=== PATIENT | male | born 1955 | race Caucasian/White ===

== ENCOUNTER → 2018-08-27 | Outpatient (CLI) | payer OTHER, SELFPAY ==
[2018-08-26 08:51] VITALS: BMI 45.0
[2018-08-27 09:02] LABS: AST(SGOT) 18 U/L (15-37); Alanine Aminotransfer ALT/SGPT 31 U/L (16-61); Albumin, Serum 3.5 g/dL (3.2-5.0); Alkaline Phosphatase 107 U/L (45-117); Anion Gap 8 (5-15); BUN 11 mg/dL (7-18); BUN/Creat Ratio 12.6 RATIO (10-20); Calcium,Total 8.4 mg/dL (8.5-10.1); Chloride 109 mmol/L (98-107); Cholesterol 149 mg/dL (200); Creatinine, Serum 0.87 mg/dL (0.70-1.30); EST Glomerular Filtration Rate 94 mL/min (>60); Est Glom Filt Rate - Afr Amer 114 mL/min (>60); Globulin 3.3 g/dL (2.2-4.2); Glucose 118 mg/dL (74-106); High Density Lipoprotein 30 mg/dL; Potassium 3.9 mmol/L (3.5-5.1); Protein, Total 6.8 g/dL (6.4-8.2); Sodium Level 144 mmol/L (136-145); Triglycerides 198 mg/dL; Very Low Density Lipoprotein 40 mg/dL (5-40)
== END | disposition home or self-care (01) ==
PROVIDERS: Family Provider Internal Medicine; PCP Internal Medicine; Referring Provider Internal Medicine Cardiovascular Disease; Visit Provider Internal Medicine Cardiovascular Disease
DX: E78.00 Pure hypercholesterolemia, unspecified (principal); Z95.1 Presence of aortocoronary bypass graft
CPT/HCPCS: 36415; 80048; 80061; 80076

== ENCOUNTER → 2019-12-09 07:06 | Outpatient (CLI) | payer OTHER, SELFPAY ==
[2018-08-26 08:51] VITALS: BMI 45.0
[2019-12-09 08:42] LABS: AST(SGOT) 17 U/L (15-37); Alanine Aminotransfer ALT/SGPT 26 U/L (16-61); Albumin, Serum 3.7 g/dL (3.2-5.0); Alkaline Phosphatase 105 U/L (45-117); Bilirubin, Direct 0.16 mg/dL (0.00-0.30); Cholesterol 108 mg/dL (200); Globulin 3.4 g/dL (2.2-4.2); High Density Lipoprotein 27 mg/dL; Protein, Total 7.1 g/dL (6.4-8.2); Triglycerides 147 mg/dL; Very Low Density Lipoprotein 29 mg/dL (5-40)
== END ==
PROVIDERS: PCP Internal Medicine; Referring Provider Internal Medicine Cardiovascular Disease; Visit Provider Internal Medicine Cardiovascular Disease
DX: E78.5 Hyperlipidemia, unspecified (principal)
CPT/HCPCS: 36415; 80061; 80076

== ENCOUNTER → 2020-01-13 06:27 | Outpatient (CLI) | payer OTHER, SELFPAY ==
[2019-12-15 09:42] VITALS: BMI 45.4
--- NOTE | 2020-01-13 17:48 | STRESSREP ---
Stress Test Report Exercise myocardial perfusion stress test. 64-year-old male with a history of coronary artery bypass surgery. Stress protocol: Resting EKG demonstrates normal sinus rhythm with a rate of 57 bpm normal intervals are noted. T wave inversions noted in leads III and aVF. The resting blood pressure was 1 and 30 over 80 mmHg. The patient exercised according to the regular Oracio protocol for a total duration of 5 minutes. The maximum heart rate attained was 134 bpm which was 86% of maximum predicted heart rate the maximum workload was 6.9 metabolic equivalents. The patient maintained sinus rhythm throughout the recording with occasional premature ventricular complexes. The resting blood pressure is 138/80 with a peak blood pressure 190/58 mmHg. T wave inversions were present throughout the stress testing with no ST changes noted to suggest ischemia. The test was terminated due to dyspnea. Myocardial perfusion protocol. 14.7 mCi of technetium 99m sestamibi was injected at rest. The patient exercised according to regular Oracio protocol for 5 minutes at peak exercise 44.9 mCi of technetium 99m sestamibi was injected stress images were obtained stress and rest images were reconstructed and compared in the short axis vertical long horizontal long axis. Gated images were also obtained P Perfusion SPECT analysis: Review of the stress images demonstrate normal perfusion noted in the septum anterior wall and inferior wall. There is a medium size defect noted in the basal anterior wall and lateral base. This extends to the mid lateral wall and the lateral apical wall. This is present on the stress images. On the resting images a similar pattern is noted with minimal improvement towards the lateral apical wall. The above is suggestive of her previous lateral infarct extending from base to mid segment. Minimal apical lateral ischemia is present. Gated SPECT analysis: The gated ejection fraction is 52%. Conclusion: Mildly abnormal exercise myocardial perfusion stress test with mild distal lateral ischemia. 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 Preserved ejection fraction.
== END ==
PROVIDERS: PCP Internal Medicine; Referring Provider Internal Medicine Cardiovascular Disease; Visit Provider Internal Medicine Cardiovascular Disease
DX: I25.10 Atherosclerotic heart disease of native coronary artery without angina pectoris (principal); Z95.1 Presence of aortocoronary bypass graft
CPT/HCPCS: 78452; 93017; A9500; A4216

== ENCOUNTER → 2021-01-03 07:26 | Outpatient (CLI) | payer OTHER, SELFPAY ==
[2021-01-06 12:36] LABS: SAR-COV-2 IGA ANTIBODY Negative (Negative); SAR-COV-2 IGM ANTIBODY Negative (Negative)
== END ==
PROVIDERS: PCP Internal Medicine; Referring Provider Nurse Practitioner Family; Visit Provider Nurse Practitioner Family
DX: Z11.52 Encounter for screening for COVID-19 (principal)
CPT/HCPCS: 36415; 86769

== ENCOUNTER → 2021-12-13 | Outpatient (CLI) | payer OTHER, SELFPAY ==
[2021-12-13 09:20] LABS: AST(SGOT) 15 U/L (15-37); Alanine Aminotransfer ALT/SGPT 33 U/L (16-61); Albumin, Serum 3.4 g/dL (3.2-5.0); Alkaline Phosphatase 85 U/L (45-117); Bilirubin, Direct 0.16 mg/dL (0.00-0.30); Cholesterol 159 mg/dL (200); Globulin 3.4 g/dL (2.2-4.2); High Density Lipoprotein 27 mg/dL; Protein, Total 6.8 g/dL (6.4-8.2); Triglycerides 222 mg/dL; Very Low Density Lipoprotein 44 mg/dL (5-40)
== END | disposition home or self-care (01) ==
PROVIDERS: PCP Internal Medicine; Referring Provider Nurse Practitioner Family; Visit Provider Nurse Practitioner Family
DX: E78.00 Pure hypercholesterolemia, unspecified (principal)
CPT/HCPCS: 36415; 80061; 80076

== ENCOUNTER → 2022-01-04 | Outpatient (CLI) | payer OTHER, SELFPAY ==
--- NOTE | 2022-01-04 06:28 | ECHOCS_ITS ---
Reason For Study: S/P CABG Procedure This was a 2D Doppler, Color Flow transthoracic echocardiogram. The study was technically difficult. Due to body habitus. Contrast injection was performed. Exam performed in department. Left Ventricle Normal LV size. Left ventricular systolic function is normal. The estimated ejection fraction is 55 %. No regional wall motion abnormalities noted. Right Ventricle Normal RV size. Normal systolic function. Atria Normal left atrium. Mitral Valve Normal mitral valve. Tricuspid Valve The tricuspid valve is not well visualized. Aortic Valve Trisinus/trileaflet aortic valve. Pulmonic Valve Normal pulmonic valve. Mild (1+) pulmonic valve insufficiency. Great Vessels Normal aortic root. The pulmonary artery is normal size. Normal inferior vena cava. Pericardium/Pleural No pericardial effusion. Medication Diluted definity 4.0ml given slow IV push to enhance endocardial definition. MMode/2D Measurements & Calculations LVIDd: 6.4 cm IVSd: 1.6 cm LVOT diam: 2.4 cm LVIDs: 4.7 cm LVPWd: 1.5 cm RVDd: 3.5 cm FS: 26.4 % LVOT area: 4.4 cm2 Ao root diam: 4.2 cm LAV(MOD-bp): 118.3 ml LA A4 area: 31.2 cm2 LAV(MOD-bp) Indexed: 44.5 ml/m2 LAV(MOD-sp2): 120.4 ml LAV(MOD-sp4): 103.5 ml LA dimension(2D): 6.2 cm Time Measurements MV dec time: 0.27 sec Doppler Measurements & Calculations MV E max catarino: 103.6 cm/sec Lat Peak E' Catarino: 8.9 cm/sec Med Peak E' Catarino: 8.1 cm/sec MV A max catarino: 92.3 cm/sec E/E' lat: 11.6 E/E' med: 12.7 MV E/A: 1.1 MV dec slope: 385.1 cm/sec2 Ao V2 max: 131.1 cm/sec LV V1 max: 93.1 cm/sec Ao max P.9 mmHg LV V1 max P.5 mmHg JUAN(V,D): 3.1 cm2 PA V2 max: 109.4 cm/sec PI end-d catarino: 111.9 cm/sec ECHO/Echo Complete W/ Contrast Interpretation Summary Normal LV size. Left ventricular systolic function is normal. The estimated ejection fraction is 55 %. Contrast injection was performed. Ordering Physician: Adebayo Moss Referring Physician: Theron Luther Performed By: Sheela Ceballos RDCS, RVT
--- NOTE | 2022-01-04 12:35 | STRESSREP ---
Stress Test Report Exercise perfusion stress test. 66-year-old man with a history of coronary artery disease status post coronary bypass surgery with a GRANADOS to the LAD right internal mammary artery to the circumflex artery and saphenous vein graft to posterior descending artery. Stress protocol: Resting KG demonstrates sinus bradycardia with a rate of 54 bpm normal intervals are noted resting blood pressure is 130/80 mmHg. The patient exercised according to the regular Oracio protocol for total duration of 4 minutes and 40 seconds. Patient completed 1 minute and 40 seconds into stage III of the Oracio protocol. The maximum heart rate attained was 130 bpm which was 84% of max impacted heart rate the maximum workload was 7 metabolic equivalents. At rest there were no ST or T wave changes noted suggest ischemia at peak exercise there was mild downsloping ST depression noted in leads II, III and aVF as well as V5 and V6. The above though suggestive is not diagnostic of ischemia. The test was terminated due to dyspnea. The peak blood pressure was 184/82 mmHg. Myocardial perfusion protocol. 14.9 mCi of technetium 99m sestamibi was injected at rest. Patient exercised according to regular Oracio protocol for 4 minutes and 40 seconds and at peak exercise 44.6 mCi of technetium 99m sestamibi was injected stress images were obtained stress and rest images were reconstructed in comparing the short axis vertical long and horizontal long axis. Gated images were also obtained. Perfusion SPECT analysis: Review of the stress images demonstrate a normal cardiac silhouette size. There is a defect noted in the basal inferior wall on the stress images and also extending to the inferior lateral wall. The anterior wall and septum appear to be well perfused. The resting images demonstrate a similar patent. The above is suggestive of a previous basal inferior and inferolateral infarct with no significant ischemia noted. Gated SPECT analysis: The gated ejection fraction is 54%. Conclusion: Exercise myocardial perfusion stress test with evidence of previous basal inferior and inferior lateral wall infarct at a moderate workload. No obvious ischemia noted. Preserved ejection fraction.
== END | disposition home or self-care (01) ==
PROVIDERS: PCP Internal Medicine; Referring Provider Internal Medicine Cardiovascular Disease; Visit Provider Internal Medicine Cardiovascular Disease
DX: I25.10 Atherosclerotic heart disease of native coronary artery without angina pectoris (principal); Z95.1 Presence of aortocoronary bypass graft
CPT/HCPCS: 78452; 93017; 93306; A9500; Q9957; A4216; C8929

== ENCOUNTER → 2024-06-03 | Outpatient (CLI) | payer OTHER, SELFPAY ==
[2024-06-03 08:50] LABS: Absolute Lymphocyte Count 1.75 X10^3/uL (0.83-4.51); Basophil# 0.06 X10^3/uL; Basophil% 0.9 % (0-1); Eosinophil# 0.25 X10^3/uL; Eosinophils% 3.6 % (0-5); Hematocrit 41.3 % (40-54); Hemoglobin 14.5 g/dL (13.0-16.5); Lymphocyte # 1.75 X10^3/ul (0.83-4.51); Lymphocyte % 25.3 % (19-41); Mean Corp Hgb Conc 35.1 g/dL (32-36); Mean Corpuscular Hgb 30.1 pg (27.0-32.0); Mean Corpuscular Volume 85.7 fL (80-94); Mean Platelet Vol. 11.2 fl (6.2-12.0); Monocyte# 0.84 X10^3/uL; Monocyte% 12.2 % (0-10); NRBC Flagged by Analyzer 0 % (0-5); Neutrophil # 3.96 X10^3/uL (2.7-7.7); Neutrophil % 57.3 % (47-70); Platelet Count 214 K/mm3 (150-450); RBC Distribution Width CV 14.2 % (11.6-14.6); RBC Distribution Width SD 43.7 fl (35.1-43.9); Red Blood Count 4.82 M/mm3 (4.6-6.2); White Blood Count 6.9 K/mm3 (4.4-11.0)
[2024-06-03 09:15] LABS: Microalbumin,Random Urine < 12.0 mg/L (NO RANGE EST.); Microalbumin:Creatinine Ratio UNABLE TO CALCULATE mg/g CRE
[2024-06-03 09:21] LABS: Hemoglobin A1c 5.9 % (<=5.6)
[2024-06-03 09:31] LABS: Vitamin D,25 Hydroxy 27.6 ng/mL (30-100)
[2024-06-03 09:59] LABS: Cholesterol 141 mg/dL (<=200); High Density Lipoprotein 31 mg/dL; Low Density Lipoprotein Calc. 80 mg/dL; Triglycerides 149 mg/dL; Very Low Density Lipoprotein 30 mg/dL (5-40); cholesterol:hdl ratio screen 4.58
[2024-06-03 10:17] LABS: ALB/GLOB Ratio 1.4 RATIO (0.9-2.4); AST(SGOT) 32 U/L (<=37); Alanine Aminotransfer ALT/SGPT 21 U/L (<=46); Albumin, Serum 3.8 g/dL (3.4-4.8); Alkaline Phosphatase 112 U/L (40-129); Anion Gap 9 (5-15); BUN 15 mg/dL (4-19); BUN/Creat Ratio 17.4 RATIO (10-20); Calcium,Total 9.4 mg/dL (7.6-11.0); Carbon Dioxide 25.2 mmol/L (21.0-32.0); Chloride 103 mmol/L (98-108); Creatinine, Serum 0.86 mg/dL (0.70-1.20); EST Glomerular Filtration Rate 94 (>60); Globulin 2.7 g/dL (2.2-4.2); Glucose 120 mg/dL (70-99); Potassium 4.5 mmol/L (3.3-5.1); Protein, Total 6.6 g/dL (5.9-8.4); Sodium Level 137 mmol/L (133-145); Total Bilirubin 0.44 mg/dL (0.00-1.30)
== END | disposition home or self-care (01) ==
PROVIDERS: PCP Internal Medicine; Referring Provider Internal Medicine; Visit Provider Internal Medicine
DX: E55.9 Vitamin D deficiency, unspecified (principal); E11.9 Type 2 diabetes mellitus without complications; E78.00 Pure hypercholesterolemia, unspecified
CPT/HCPCS: 36415; 80053; 80061; 82043; 82306; 82570; 83036; 84443; 85025

== ENCOUNTER 2024-06-19 10:34 | Day surgery (SDC) | payer OTHER, SELFPAY ==
--- NOTE | 2024-06-17 11:53 | PAT.ANESEVAL ---
Pre-Assessment Diagnosis/Proposed Procedure Planned Operative Procedure(s): COLONOSCOPY-OA Anesthesia History Anesthesia History - workers compensation claims examiner: Anesthesia History - workers compensation claims examiner Hx Hospitalization No 06/17/24 08:57 Any Problems With Anesthesia Yes: HARD TIME WAKING 06/17/24 08:57 Cholinesterase deficiency No 06/17/24 08:57 You/Your Family Experience No 06/17/24 08:57 fever (hyperthermia) with Relationship Recent Exposure to Contagious Disease Does patient have nerve No 06/17/24 08:57 stimulator Patient instructed to have device shut off --Does patient have Pacemaker or ICD? When Was Last Pacemaker Check QUESTION #4 FULL TEXT: You/Your Family Experience fever (hyperthermia) with Anesthesia Last Oral Intake Last Oral intake: Last Oral Intake NPO since Meds taken in AM with sips of water? Meds patient instructed to take am of surgery PONV PONV - workers compensation claims examiner: PONV - workers compensation claims examiner Female No 06/17/24 08:57 HX of Motion Sickness No 06/17/24 08:57 HX of N/V After Surgery No 06/17/24 08:57 Non-Smoker Yes 06/17/24 08:57 Duration of Surgery greater No 06/17/24 08:57 than 60 minutes Number of Risk Factors 1 06/17/24 08:57 PONV Score Low Risk 06/17/24 08:57 Height & Weight Height & Weight: Anesthesia: Height & Weight Height 6 ft 03/02/24 11:36 Respiratory Assessment Respiratory Assessment - workers compensation claims examiner: Respiratory Tract Infection Hx - workers compensation claims examiner Hx Respiratory Tract Infection No 06/17/24 08:57 STOP Sleep Apnea STOP Sleep Apnea - workers compensation claims examiner: STOP Sleep Apnea - workers compensation claims examiner Hx Hypertension Yes: CONTROLLED ON MEDS 06/17/24 08:57 Hx Sleep Apnea Yes 06/17/24 08:57 CPAP No 06/17/24 08:57 BIPAP Yes 06/17/24 08:57 Do you snore loudly (louder than talking or can be heard Do you often feel tired/ fatigued/ sleepy during daytime? Has anyone observed you stop breathing during sleep? STOP Results Positive 06/17/24 08:57 QUESTION #5 FULL TEXT : Do you snore loudly (louder than talking or can be heard through closed doors)? 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 Specify any problems Hx of Preganancy in last 3 N/A 06/17/24 08:57 Months Nurse Filling Out Transfusion VCHRISTIN 06/17/24 08:57 & Questions: Date: 06/17/24 06/17/24 08:57 Time: 09:00 06/17/24 08:57 Patient unable to answer at this time (ie. confused, unrespo /Reproduction History /Reproductive History - workers compensation claims examiner: /Reproductive Hx- workers compensation claims examiner Hx Now Gestational Age (in weeks): EDC: Hx Hx Para Hx Section SAB PFSH Medical History (Updated 06/17/24 @ 08:57 by Meg Sewell) Wears glasses Alcohol use Arthritis High cholesterol Excessive bleeding History of diverticulitis Non-smoker BiPAP (biphasic positive airway pressure) dependence Sleep apnea History of pain when walking History of edema History of stress test History of echocardiogram Cardiology follow-up encounter Personal history of colonic polyps RYLAN (obstructive sleep apnea) Encounter for screening for COVID-19 Old inferolateral myocardial infarction Diverticulosis Morbid obesity Atherosclerosis of coronary artery of [place] heart without angina pectoris Essential (primary) hypertension HLD (hyperlipidemia) Home Medications ?Medication ?Instructions ?Recorded ?Last Taken ?Type cholecalciferol (vitamin D3) 50 2,000 unit PO QDAY 08/21/17 Unknown History mcg (2,000 unit) tablet nitroglycerin 0.4 mg sublingual 0.4 mg sublingual Q5M PRN chest 08/21/17 Unknown History tablet (Nitrostat) pain zinc 50 mg tablet 50 mg PO DAILY 01/10/21 Unknown History aspirin 81 mg tablet,delayed 81 mg PO QDAY #90 tabs 09/12/21 Unknown Rx release (Adult Low Dose Aspirin) allopurinol 300 mg tablet 300 mg PO DAILY 12/27/23 Unknown History amlodipine 10 mg tablet 5 mg (1/2 x 10 mg) PO DAILY #90 09/11/23 Unknown Rx tabs rosuvastatin 20 mg tablet 20 mg PO .QOD #45 tabs 09/11/23 Unknown Rx ramipril 10 mg capsule 10 mg PO BID #180 caps 09/26/23 Unknown Rx hydrochlorothiazide 25 mg tablet 25 mg PO DAILY #90 tabs 03/03/24 Unknown Rx carvedilol 12.5 mg tablet 12.5 mg PO DAILY 06/17/24 Unknown History Allergy/AdvReac Type Severity Reaction Status Date / Time niacin (From Niaan Allergy Rash Verified 06/17/24 08:43 Extended-Release) Family History Father CAD (coronary artery disease) cabg Surgical History (Updated 06/17/24 @ 08:56 by Meg Sewell) Hx of colonoscopy Hx of cholecystectomy History of left heart catheterization (06/07/09) H/O coronary artery bypass surgery (03/12/97) History of urethrotomy History of colectomy Social History (Updated 03/02/24 @ 11:28 by Blessing Pompa) household members: spouse current occupational status: employed Smoking Status: Never smoker alcohol intake: current Alcohol type: wine and hard liquor substance use type: does not use caffeine: Yes Type: coffee Number of servings: 1 Audit: Pertinent Findings Pertinent Findings EKG Perinent findings: 08/26/2018. Sinus rhythm with frequent PACs. Old anterior septal infarct. Nonspecific ST depression. Diffuse nonspecific T wave abnormality. Nondiagnostic. Echo (EF%) pertinent findings: 01/04/2022. Normal size function EF 55%. Consult pertinent findings: Cardiology 03/06/2023. History of coronary artery bypass surgery. March 1997. Stress test from December 2021 was negative for ischemia. Stable. Hypertension. Chronic. Stable. Recommendation Anesthesia Recommendation Anesthesia recommendation: OPTIMIZED for anesthesia
[2024-06-19] VITALS (8 sets, daily range): BP systolic 128–174; BP diastolic 70–78; PULSE 54–61; RESP 16–18; TEMP 36.4–37.2; O2SAT 96–99; BMI 45.0
--- NOTE | 2024-06-19 11:13 | PCM.PRE.AN2 ---
ASA Classification* ASA Classification ASA Classification: 3 Assessment & Plan Anesthesia* Anesthesia Assessment Anesthesia Assessment: Discussed sedation and/or anesthesia options, risks, benefits, and alternatives with patient/parents/legal guardian/POA. Questions invited. The patient/parents/legal guardian/POA seems to understand and agrees to proceed with anesthesia plan. Reviewed the physical assessment, medical history, allergy history and patient home medications list prior to surgery/procedure/anesthetic and documented any changes. Performed airway and anesthesia risk assessments. Anesthesia Type Anesthesia Type: MAC Anesthesia Focused Assessment* Temperature: 97.5 F Pulse Rate: 60 Blood Pressure: 174/78 Respiratory Rate: 16 Pulse Ox: 99 Airway Assessment Mouth opens: >3 cm Mallampati Score: II Focused Labs Anesthesia Preop lab: CBC WBC 6.9 K/mm3 (4.4-11.0) 06/03/24 08:16 06/03/24 RBC 4.82 M/mm3 (4.6-6.2) 06/03/24 08:16 06/03/24 Hgb 14.5 g/dL (13.0-16.5) 06/03/24 08:16 06/03/24 Hct 41.3 % (40-54) 06/03/24 08:16 06/03/24 Plt Count 214 K/mm3 (150-450) 06/03/24 08:16 06/03/24 CHEMISTRY Potassium 4.5 mmol/L (3.3-5.1) 06/03/24 08:16 06/03/24 Sodium 137 mmol/L (133-145) 06/03/24 08:16 06/03/24 BUN 15 mg/dL (4-19) 06/03/24 08:16 06/03/24 Creatinine 0.86 mg/dL (0.70-1.20) 06/03/24 08:16 06/03/24 Glucose 120 mg/dL (70-99) H 06/03/24 08:16 06/03/24 TSH 2.300 uIU/mL (0.300-4.200) 06/03/24 08:16 06/03/24 COAG Pre-Assessment Diagnosis/Proposed Procedure Planned Operative Procedure(s): COLONOSCOPY-OA Anesthesia History Anesthesia History - speech correction consultant: Anesthesia History - speech correction consultant Hx Hospitalization No 06/17/24 08:57 Any Problems With Anesthesia Yes: HARD TIME WAKING 06/17/24 08:57 Cholinesterase deficiency No 06/17/24 08:57 You/Your Family Experience No 06/17/24 08:57 fever (hyperthermia) with Relationship Recent Exposure to Contagious No 06/19/24 10:55 Disease Does patient have nerve No 06/17/24 08:57 stimulator Patient instructed to have device shut off --Does patient have Pacemaker No 06/19/24 10:55 or ICD? When Was Last Pacemaker Check QUESTION #4 FULL TEXT: You/Your Family Experience fever (hyperthermia) with Anesthesia Last Oral Intake Last Oral intake: Last Oral Intake NPO since 08:30 06/19/24 10:55 Meds taken in AM with sips of No 06/19/24 10:55 water? Meds patient instructed to take am of surgery PONV PONV - speech correction consultant: PONV - speech correction consultant Female No 06/17/24 08:57 HX of Motion Sickness No 06/17/24 08:57 HX of N/V After Surgery No 06/17/24 08:57 Non-Smoker Yes 06/17/24 08:57 Duration of Surgery greater No 06/17/24 08:57 than 60 minutes Number of Risk Factors 1 06/17/24 08:57 PONV Score Low Risk 06/17/24 08:57 Height & Weight Height & Weight: Anesthesia: Height & Weight Height 6 ft 06/19/24 10:55 Weight: 150.7 kg 06/19/24 10:55 Body Mass Index (BMI) 45.0 06/19/24 10:55 Respiratory Assessment Respiratory Assessment - speech correction consultant: Respiratory Tract Infection Hx - speech correction consultant Hx Respiratory Tract Infection No 06/17/24 08:57 STOP Sleep Apnea STOP Sleep Apnea - speech correction consultant: STOP Sleep Apnea - speech correction consultant Hx Hypertension Yes: CONTROLLED ON MEDS 06/17/24 08:57 Hx Sleep Apnea Yes 06/17/24 08:57 CPAP No 06/17/24 08:57 BIPAP Yes 06/17/24 08:57 Do you snore loudly (louder than talking or can be heard Do you often feel tired/ fatigued/ sleepy during daytime? Has anyone observed you stop breathing during sleep? STOP Results Positive 06/17/24 08:57 QUESTION #5 FULL TEXT : Do you snore loudly (louder than talking or can be heard through closed doors)? Tobacco Use History Tobacco Use History - speech correction consultant: Tobacco Use History - speech correction consultant Tobacco Use Smoking Status Never smoker 06/17/24 08:57 Hx Tobacco Use No 06/17/24 08:57 Years Smoking Packs Smoked per Day Smoking Cessation Date was within the last 15 years Hx Smoking Cessation Date Hx Smoking Cessation Counseling Hematologic Medial History Hematologic Hx - speech correction consultant: Hematologic Medical Hx - protection agent Hx of Blood Transfusion No 06/17/24 08:57 Hx of Transfusion in last 3 No 06/17/24 08:57 Months Date of Last Transfusion (if within last 3 months) Ever experience any problems No 06/17/24 08:57 with transfusion(s)? Specify any problems Hx of Preganancy in last 3 N/A 06/17/24 08:57 Months Nurse Filling Out Transfusion VCHRISTIN 06/17/24 08:57 & Questions: Date: 06/17/24 06/17/24 08:57 Time: 09:00 06/17/24 08:57 Patient unable to answer at this time (ie. confused, unrespo /Reproduction History /Reproductive History - speech correction consultant: /Reproductive Hx- speech correction consultant Hx Now Gestational Age (in weeks): EDC: Hx Hx Para Hx Section SAB PFSH Medical History Wears glasses Alcohol use Arthritis High cholesterol Excessive bleeding History of diverticulitis Non-smoker BiPAP (biphasic positive airway pressure) dependence Sleep apnea History of pain when walking History of edema History of stress test History of echocardiogram Cardiology follow-up encounter Personal history of colonic polyps RYLAN (obstructive sleep apnea) Encounter for screening for COVID-19 Old inferolateral myocardial infarction Diverticulosis Morbid obesity Atherosclerosis of coronary artery of [place] heart without angina pectoris Essential (primary) hypertension HLD (hyperlipidemia) Home Medications ?Medication ?Instructions ?Recorded ?Last Taken ?Type cholecalciferol (vitamin D3) 50 2,000 unit PO QDAY 08/21/17 06/18/24 History mcg (2,000 unit) tablet nitroglycerin 0.4 mg sublingual 0.4 mg sublingual Q5M PRN chest 08/21/17 Unknown History tablet (Nitrostat) pain zinc 50 mg tablet 50 mg PO DAILY 01/10/21 06/18/24 History aspirin 81 mg tablet,delayed 81 mg PO QDAY #90 tabs 09/12/21 06/16/24 Rx release (Adult Low Dose Aspirin) allopurinol 300 mg tablet 300 mg PO DAILY 03/06/23 06/18/24 History amlodipine 10 mg tablet 5 mg (1/2 x 10 mg) PO DAILY #90 09/11/23 06/18/24 Rx tabs rosuvastatin 20 mg tablet 20 mg PO .QOD #45 tabs 09/11/23 06/18/24 Rx ramipril 10 mg capsule 10 mg PO BID #180 caps 09/26/23 06/17/24 Rx hydrochlorothiazide 25 mg tablet 25 mg PO DAILY #90 tabs 03/03/24 06/18/24 Rx carvedilol 12.5 mg tablet 12.5 mg PO DAILY 06/17/24 06/18/24 History Allergy/AdvReac Type Severity Reaction Status Date / Time niacin (From Niaspan Allergy Rash Verified 06/19/24 10:52 Extended-Release) Family History Father CAD (coronary artery disease) cabg Surgical History Hx of colonoscopy Hx of cholecystectomy History of left heart catheterization (06/07/09) H/O coronary artery bypass surgery (03/12/97) History of urethrotomy History of colectomy Social History household members: spouse current occupational status: employed Smoking Status: Never smoker alcohol intake: current Alcohol type: wine and hard liquor substance use type: does not use caffeine: Yes Type: coffee Number of servings: 1 Review of Systems (Anesthesia) ROS Narrative System reviewed and no additional complaints, except as documented.
--- NOTE | 2024-06-19 12:00 | COLBX_PTH ---
PATIENT: SANCHO TEIXEIRA LOC: EN U#:[id number] AGE/SX: 68/M ROOM: RE06/19/[address]: Dr. Rolando Glaser DO : 1955 BED: DIS: 06/19/2024 SPEC #: [id number] RECD: 06/22/24 08:48 STATUS: ETHAN REJenny #: [id number] STEVE: 06/19/24 12:[address]: Rolando Glaser DEPT: SURGICAL PATHOLOGY RECD BY: Edmund Morgan ENTERED: 06/22/24 08:48 SP TYPE: COLON BX OT DR: Dr. Jessy Luther DO Tissues: A - Rectum, NOS Procedures: Surgery Specimen Level IV HEADER OPERATION: Colonoscopy with polypectomy PRE-OP DIAGNOSIS: Encounter for screening for malignant neoplasm of colon TISSUE SUBMITTED: A- Rectal polyp MICROSCOPIC DIAGNOSIS A. Rectum, polyp, biopsy: * Inflammatory polyp. MICROSCOPIC DESCRIPTION Slides are reviewed. GROSS DESCRIPTION A. Received in formalin in a container labeled with the patient's name, date of , and rectal polyp are 2 william-pink fragments of mucosal tissue, each measuring 0.5 x 0.4 x 0.4 cm. Submitted in toto in A1. SMB 06/28/2024 CPT:61057
--- NOTE | 2024-06-19 12:03 | PCM.HP.STD ---
HPI - General General Date of Admission: 06/19/24 Date of Service: 06/19/24 Chief Complaint: Screening colonoscopy HPI Narrative SANCHO TEIXEIRA, is a 68 M who presents for screening colonoscopy. He has a past medical history of coronary artery disease status post CABG in 1997, hypertension, obesity. He is not having any chest pain, shortness of breath or nausea vomiting diarrhea. [facility] Medical History Wears glasses Alcohol use Arthritis High cholesterol Excessive bleeding History of diverticulitis Non-smoker BiPAP (biphasic positive airway pressure) dependence Sleep apnea History of pain when walking History of edema History of stress test History of echocardiogram Cardiology follow-up encounter Personal history of colonic polyps RYLAN (obstructive sleep apnea) Encounter for screening for COVID-19 Old inferolateral myocardial infarction Diverticulosis Morbid obesity Atherosclerosis of coronary artery of [place] heart without angina pectoris Essential (primary) hypertension HLD (hyperlipidemia) Home Medications ?Medication ?Instructions ?Recorded ?Last Taken ?Type cholecalciferol (vitamin D3) 50 2,000 unit PO QDAY 08/21/17 06/18/24 History mcg (2,000 unit) tablet nitroglycerin 0.4 mg sublingual 0.4 mg sublingual Q5M PRN chest 08/21/17 Unknown History tablet (Nitrostat) pain zinc 50 mg tablet 50 mg PO DAILY 01/10/21 06/18/24 History aspirin 81 mg tablet,delayed 81 mg PO QDAY #90 tabs 09/12/21 06/16/24 Rx release (Adult Low Dose Aspirin) allopurinol 300 mg tablet 300 mg PO DAILY 03/06/23 06/18/24 History amlodipine 10 mg tablet 5 mg (1/2 x 10 mg) PO DAILY #90 09/11/23 06/18/24 Rx tabs rosuvastatin 20 mg tablet 20 mg PO .QOD #45 tabs 09/11/23 06/18/24 Rx ramipril 10 mg capsule 10 mg PO BID #180 caps 09/26/23 06/17/24 Rx hydrochlorothiazide 25 mg tablet 25 mg PO DAILY #90 tabs 03/03/24 06/18/24 Rx carvedilol 12.5 mg tablet 12.5 mg PO DAILY 06/17/24 06/18/24 History Allergy/AdvReac Type Severity Reaction Status Date / Time niacin (From [facility] Allergy Rash Verified 06/19/24 10:52 Extended-Release) Family History Father CAD (coronary artery disease) cabg Surgical History Hx of colonoscopy Hx of cholecystectomy History of left heart catheterization (06/07/09) H/O coronary artery bypass surgery (03/12/97) History of urethrotomy History of colectomy Social History household members: spouse current occupational status: employed Smoking Status: Never smoker alcohol intake: current Alcohol type: wine and hard liquor substance use type: does not use caffeine: Yes Type: coffee Number of servings: 1 Vital Signs Vital Signs Vital Signs: 06/19/24 10:55 06/19/24 10:55 06/19/24 11:14 Temperature 97.5 F L 97.5 F L Temperature Source Temporal Pulse Rate 60 60 Respiratory Rate 16 16 Respiratory Pattern Normal Blood Pressure 174/78 H 174/78 H Blood Pressure Mean 110 Blood Pressure Source Monitor Blood Pressure Position Sitting Blood Pressure Location Left Arm Pulse Ox 99 99 Oxygen Delivery Method Room Air Weight Weight: 332 lb 3.786 oz Body Mass Index (BMI) 45.0 Physical Exam Const alert, oriented x3, no apparent distress and healthy appearing General Appearance: cooperative GI normal to inspection, nondistended, normoactive bowel sounds, soft to palpation, non-tender and non-distended Percussion: normal to percussion Rectal Exam: deferred Assessment & Plan Assessment/Plan (1) Encounter for screening for malignant neoplasm of colon: PLAN: He was explained alternatives, risk and benefits including outstanding bleeding, infection, sepsis, perforation, need for emergent urgent . He will have an ASA of 3.
--- NOTE | 2024-06-19 12:42 | OP.COLON_ITS ---
Patient Name: Kodi Salguero Procedure Date: 06/19/2024 12:02 PM Date of : 1955 Age: 68 Procedure: Colonoscopy Indications: Screening for colorectal malignant neoplasm Providers: Rolando Glaser DO Referring MD: Jessy Luther Medicines: Monitored Anesthesia Care Patient Profile: This is a 68 year old male. Refer to note in patient chart for documentation of history and physical. Last Colonoscopy: several years ago. Complications: No immediate complications. Procedure: Pre-Anesthesia Assessment: - Prior to the procedure, a History and Physical was performed, and patient medications and allergies were reviewed. The patient is competent. The risks and benefits of the procedure and the sedation options and risks were discussed with the patient. All questions were answered and informed consent was obtained. Patient identification and proposed procedure were verified by the physician in the pre-procedure area. Mental Status Examination: alert and oriented. Airway Examination: normal oropharyngeal airway and neck mobility. Respiratory Examination: clear to auscultation. CV Examination: normal. Prophylactic Antibiotics: The patient does not require prophylactic antibiotics. Prior Anticoagulants: The patient has taken no anticoagulant or antiplatelet agents except for NSAID medication. ASA Grade Assessment: II - A patient with mild systemic disease. After reviewing the risks and benefits, the patient was deemed in satisfactory condition to undergo the procedure. The anesthesia plan was to use monitored anesthesia care (MAC). Immediately prior to administration of medications, the patient was re-assessed for adequacy to receive sedatives. The heart rate, respiratory rate, oxygen saturations, blood pressure, adequacy of pulmonary ventilation, and response to care were monitored throughout the procedure. The physical status of the patient was re-assessed after the procedure. After I obtained informed consent, the scope was passed under direct vision. Throughout the procedure, the patient's blood pressure, pulse, and oxygen saturations were monitored continuously. The Colonoscope was introduced through the anus and advanced to the cecum, identified by appendiceal orifice and ileocecal valve. The colonoscopy was performed without difficulty. The patient tolerated the procedure well. The quality of the bowel preparation was adequate. The ileocecal valve, appendiceal orifice, and rectum were photographed. Scope In: 12:21:18 PM Scope Withdrawal Time 0 hours 10 minutes 10 seconds Scope Out: 12:34:55 PM Total Procedure Duration Time 0 hours 13 minutes 37 seconds Findings: The perianal and digital rectal examinations were normal. A 10 mm polyp was found in the rectum. The polyp was sessile. The polyp was removed with a hot snare. Resection and retrieval were complete. Verification of patient identification for the specimen was done. Estimated blood loss was minimal. There was evidence of a prior functional end-to-end colo-colonic anastomosis in the sigmoid colon. This was patent and was characterized by healthy appearing mucosa. The anastomosis was traversed. The exam was otherwise without abnormality on direct and retroflexion views. Impression: - One 10 mm polyp in the rectum, removed with a hot snare. Resected and retrieved. - Patent functional end-to-end colo-colonic anastomosis, characterized by healthy appearing mucosa. - The examination was otherwise normal on direct and retroflexion views. Recommendation: - Discharge patient to home. - Resume previous diet. - Continue present medications. - Await pathology results. - Repeat colonoscopy in 5 years for surveillance. Procedure Code(s): --- Professional --- 37300, Colonoscopy, flexible; with removal of tumor(s), polyp(s), or other lesion(s) by snare technique CPT copyright 2021 [employer]. All rights reserved. The codes documented in this report are preliminary and upon hydraulic bull riveter operator review may be revised to meet current compliance requirements. Rolando Glaser DO 06/19/2024 12:42:31 PM This report has been signed electronically. Number of Addenda: 0 Note Initiated On: 06/19/2024 12:02 PM
--- NOTE | 2024-06-19 12:43 | OP.CCLET_ITS ---
06/19/2024 Jessy Luther [address] [place] [address] Re : Colonoscopy procedure for Kodi Salguero Dear Dr. Luther This procedure was performed on Wednesday, June 19, 2024. My impressions and recommendations are as follows: Impressions : - One 10 mm polyp in the rectum, removed with a hot snare. Resected and retrieved. - Patent functional end-to-end colo-colonic anastomosis, characterized by healthy appearing mucosa. - The examination was otherwise normal on direct and retroflexion views. Recommendations : - Discharge patient to home. - Resume previous diet. - Continue present medications. - Await pathology results. - Repeat colonoscopy in 5 years for surveillance. My findings are described in the full procedure note, which is enclosed. If I can be of further assistance, please feel free to contact me at . Sincerely, Rolando Friend, 06/19/2024 12:42:31 PM This report has been signed electronically.
--- NOTE | 2024-06-19 12:51 | PCM.POST.ANE ---
Anesthesia: Postop Eval I Current Vital Signs Temperature: 97.9 F Pulse Rate: 61 Blood Pressure: 129/75 Respiratory Rate: 16 Pulse Ox: 98 Oxygen Delivery Method: Room Air Assessment Airway patent: Yes Spontaneous unlabored respirations: Yes Mental status: Awake and Calm nausea: No Vomiting: No Anesthesia Complication: No Fluid Hydration Crystalloid volume administer (ml): 40 Total IV fluid infused: 40 Progress Note Anesthesia document: Postop Eval 1 completed: Yes
--- NOTE | 2024-06-19 13:07 | PCM.POSTANE2 ---
Anesthesia Postop Eval I Sum Postop Eval Completion status Anesthesia document: Postop Eval 1 completed: Yes Anesthesia Postop Eval I Summary Anesthesia Postop Eval I Summary: Anesthesia Postop Eval I: Assessment Summary Airway patent Yes 06/19/24 12:51 [email or web address] Spontaneous unlabored Yes 06/19/24 12:51 [email or web address] respirations Mental status Awake,Calm 06/19/24 12:51 [email or web address] nausea No 06/19/24 12:51 [email or web address] Vomiting No 06/19/24 12:51 [email or web address] Anesthesia Postop Eval I: Fluid Summary Crystalloid volume administer 40 06/19/24 12:51 [email or web address] (ml) Colloids volume administered ( ml) Blood Product volume administered (ml) Total IV fluid infused 40 06/19/24 12:51 [email or web address] Anesthesia Postop Eval I: Summary Notes Anesthesia Complication No 06/19/24 12:51 [email or web address] Anesthesia Complication Comment: Post-operative progress note Anesthesia: Postop Eval II Evaluation Mental status: Awake Pain Level: 0 nausea: No Vomiting: No
== END 2024-06-19 13:15 | disposition home or self-care (01) ==
LOC: EN 10:34 → AC 10:37
PROVIDERS: PCP Internal Medicine; Referring Provider Internal Medicine; Visit Provider Internal Medicine Gastroenterology
PROC: 0DJD8ZZ Inspection of Lower Intestinal Tract, Via Natural or Artificial Opening Endoscopic (ICD-10-PCS; CPT 45378; principal; 2024-06-19 11:55)
DX: Z12.11 Encounter for screening for malignant neoplasm of colon (principal); I25.10 Atherosclerotic heart disease of native coronary artery without angina pectoris; I10 Essential (primary) hypertension; K62.1 Rectal polyp; Z79.82 Long term (current) use of aspirin; E78.00 Pure hypercholesterolemia, unspecified; Z95.1 Presence of aortocoronary bypass graft; I25.2 Old myocardial infarction; G47.33 Obstructive sleep apnea (adult) (pediatric); Z99.81 Dependence on supplemental oxygen; Z79.899 Other long term (current) drug therapy; Z90.49 Acquired absence of other specified parts of digestive tract
CPT/HCPCS: 45385; 88305; A4216; J2405

== ENCOUNTER → 2024-09-21 | Outpatient (CLI) | payer OTHER, SELFPAY ==
[2024-09-21 07:59] LABS: Red Blood Cells-Urine 0 SEEN /hpf (0-5)
[2024-09-21 09:04] LABS: Color, Urine Yellow (Yellow); Glucose, Dipstick Normal (Normal); Ketone-Dipstick Negative (Negative); Leukocyte Esterase-Dipstick 100 /ul (Negative); Nitrite-Dipstick Negative (Negative); Occult Blood-Urine 25 /ul (Negative); Protein-Dipstick 15 mg/dl (Negative); Specific Gravity, Urine 1.020 (1.002-1.030); Urine Bilirubin Dipstick Negative (Negative)
[2024-09-21 09:15] LABS: Mucous, Urine 1+ /hpf (<or=2+); Squamous Epithelial Cells - UA 0-5 SEEN /hpf (0-5)
[2024-09-21 09:47] LABS: Vitamin D,25 Hydroxy 40.4 ng/mL (30-100)
[2024-09-21 09:48] LABS: Creatinine, Urine (random) 213.00 mg/dL (39.00-259.00)
[2024-09-21 09:51] LABS: Microalbumin,Random Urine < 12.0 mg/L (NO RANGE EST.)
[2024-09-22 18:08] LABS: PSA, Total 2.0 ng/mL (0.0-4.0)
== END | disposition home or self-care (01) ==
LOC: LAB 07:54
PROVIDERS: PCP Internal Medicine; Referring Provider Internal Medicine; Visit Provider Internal Medicine
DX: Z12.5 Encounter for screening for malignant neoplasm of prostate (principal); E11.9 Type 2 diabetes mellitus without complications; E55.9 Vitamin D deficiency, unspecified
CPT/HCPCS: 36415; 81001; 82043; 82306; 82570; 83036; 84153